=== PATIENT | female | born 1955 | race Caucasian/White ===

== ENCOUNTER 2017-11-14 11:11 | Outpatient (CLI) | payer MEDICARE, MEDICAID ==
[2017-11-14] MEDS ORDERED: IOHEXOL-350 100 ML VIAL IV ONE (11:59)
[2017-11-14] MEDS ORDERED: CT SWABBABLE VALVE TRANS SET 1 EA INFUS.SET MC ONE (11:59)
[2017-11-14 12:07] LABS: CREATININE 0.9 mg/dL (0.6-1.3); POTASSIUM 4.1 mmol/L (3.5-5.1)
[2017-11-14] MEDS ORDERED: METOPROLOL TARTRATE INJ 5 MG/5 ML AMPUL ONE (12:15)
== END 2017-11-14 23:59 | disposition home or self-care (01) ==
LOC: CT 11:11
PROVIDERS: ATTEND Internal Medicine Interventional Cardiology
DX: M47.894 Other spondylosis, thoracic region (principal); E78.5 Hyperlipidemia, unspecified; E11.9 Type 2 diabetes mellitus without complications; R53.83 Other fatigue; I10 Essential (primary) hypertension; R06.00 Dyspnea, unspecified
CPT/HCPCS: 36415; 75574; 80048; J3490; Q9967; Z7610